=== PATIENT | male | born 2000 | race Caucasian/White ===

== ENCOUNTER 2019-11-26 09:30 | Day surgery (SDC) | payer OTHER ==
[~2019-11-26] VITALS: Ht 185.4 cm; Wt 99.8 kg
--- NOTE | ~2019-11-26 | OR ---
[facility] [address] [place], [place] [address] Draft DATE OF OPERATION: 11/26/2019 SURGEON: Jolynn Cummings MD PREOPERATIVE DIAGNOSIS: Pilonidal cyst (chronic). POSTOPERATIVE DIAGNOSIS: Pilonidal cyst (chronic). PROCEDURE: Excision of pilonidal cyst. ANESTHESIA: Saddle block with local anesthesia (Rosy Holguin CRNA). INDICATION: This 19-year-old white young man lives in [place] and is spending part of the summer with his grandparents locally. He was identified as having a chronic pilonidal cyst. He presented with pain and purulence in [place] where he lives. Plans were made for excision in [place]; however, his COVID test timing was off, and on that basis, his operation was canceled. He has elected to spend the rest of the summer with his grandparents locally and is self-referred for definitive excision of the pilonidal problem. He understands the risks of bleeding, infection, and recurrence. Although, there are many approaches to pilonidal management. I have recommended excision and probable wound packing rather than elaborate rotational flap or even primary closure given his local findings. He understands all of this and wished to proceed. FINDINGS: A dense rock-hard mass was noted to the left of the midline. A pilonidal disease was rather limited actually. Excision was undertaken to the post coccygeal fascia including the nodule that was eccentrically placed. The lesion once excised was opened and found to have a nest of hairs as would be expected. There was no sign of actual purulence. Wound packing was undertaken and liberal local anesthetic injected. DESCRIPTION OF PROCEDURE: The patient was brought to the operating room after undergoing saddle block anesthetic in the preop area. He was placed in the prone jackknife position. Buttocks were taped apart. He has a fair amount of internatal cleft hair and this area was clipped and prepared with a Betadine based solution and draped sterilely. A dominant pore was noted PATIENT NAME: MARY BASILIO OPERATIVE REPORT DATE OF : [birth year] REPORT #: [id number] PHYSICIAN: JOLYNN CUMMINGS MD PCP: NO PRIMARY CARE PHYSICIAN REPORT IS CONFIDENTIAL AND NOT TO BE RELEASED WITHOUT AUTHORIZATION [facility] [address] [place], [place] [address] Draft with hairs emanating from it. Palpation revealed approximately a 2 cm nodule to the left of the midline. There was only about 2 cm from the anal verge itself. There was no pilonidal disease cephalad to this. An ellipse was made on the right side of the internatal cleft in the lower aspect and extended and then to the left side, making an eccentric incision to incorporate the dense nodule laterally. Dissection was carried further with electrocautery. Complete excision of the diseased tissue was undertaken. A limited amount of tissue was excised. The lesion was incised on the back table and found to have a nest of hairs. There was no sign of purulence. All of the nest was "dry." Re-examination of the excision site showed good fresh tissue. Electrocautery was used to secure hemostasis. 20 mL of 0.25% Marcaine with epinephrine was injected locally for postoperative analgesia. The wound was packed with single-ply coarse gauze and a beltran pad, and he was returned to supine position, ultimately taken to the recovery room in good condition. MD KYLE Urrutia/DONNA /[id number] Copies: ~ PATIENT NAME: MARY BASILIO OPERATIVE REPORT DATE OF : [birth year] REPORT #: [id number] PHYSICIAN: JOLYNN CUMMINGS MD PCP: NO PRIMARY CARE PHYSICIAN REPORT IS CONFIDENTIAL AND NOT TO BE RELEASED WITHOUT AUTHORIZATION
--- NOTE | 2019-11-26 11:00 | NUR ---
11/26/19 1100 Triny Finney 1056-PATIENT ARRIVED TO PACU ON RA RR EVEN NONAROUSABLE. SR. IVF INFUSING.
[2019-11-26] MEDS ORDERED: IBUPROFEN600 MG PO (11:16)
[2019-11-26] MEDS ORDERED: ACETAMINOPHEN500 MG PO (11:16)
[2019-11-26] MEDS ORDERED: OXYCODON-ACETA1 EAC2 PO (11:16)
--- NOTE | 2019-11-27 12:19 | PATH ---
[facility] [address] [place], [place] [address] Signed SPECIMEN(S): A PILONIDAL CYST SPECIMEN SOURCE: A. PILONIDAL CYST CLINICAL HISTORY: Excision of pilonidal cyst. FINAL PATHOLOGIC DIAGNOSIS: "Pilonidal cyst", excision: - Consistent with pilonidal sinus/cyst with evidence of prior rupture. NAL:cml:C2NR MICROSCOPIC EXAMINATION: Histologic sections of all submitted blocks are examined by light microscopy. These findings, together with the gross examination, support the pathologic diagnosis. GROSS DESCRIPTION: The specimen, labeled "HT, pilonidal cyst," is received in formalin and consists of one triangular-shaped piece of skin tissue that measures 2.5 x 1.9 cm with attached up to 2.5 cm, yellow-parikh subcutaneous tissue. Skin surface shows a defect that measures 0.3 cm through defect with protruding brown hair. Sectioning through the specimen reveals pink-parikh, homogenous tissue and yellow-parikh, cyst-like defect that measures 0.3 cm in diameter. Graphics Manager sections are submitted in cassettes (A1-A2). JS (under the direct supervision of a pathologist) The Gross Description was prepared using a voice recognition system. The report was reviewed for accuracy; however, sound-alike word errors, addition and/or deletions may occur. If there is any question about this report, please contact Client Services. PERFORMING LABORATORY: The technical component was performed by [facility], [address] [place] [id number] (Invertebrate Paleontologist: Sarita Patel MD; CLIA# [id number]). [facility] [address] [address] (CLIA# [id number]). Diagnostician: Aisha Mcbride MD PATIENT NAME: MARY BASILIO PATHOLOGY DATE OF : [birth year] REPORT #: [id number] PHYSICIAN: [facility] PCP: NO PRIMARY CARE PHYSICIAN REPORT IS CONFIDENTIAL AND NOT TO BE RELEASED WITHOUT AUTHORIZATION [address] [address] Signed Pathologist Electronically Signed 11/27/2019 Copies: ~ PATIENT NAME: MARY BASILIO PATHOLOGY DATE OF : [birth year] REPORT #: [id number] PHYSICIAN: [facility] PCP: NO PRIMARY CARE PHYSICIAN REPORT IS CONFIDENTIAL AND NOT TO BE RELEASED WITHOUT AUTHORIZATION
== END 2019-11-26 11:55 | disposition home or self-care (01) ==
LOC: DS 09:30 → OPS 09:30 → EDBD 11:00 → DS 11:00 → OPS 11:00
PROVIDERS: Surgery
PROC: 0HB8XZZ Excision of Buttock Skin, External Approach (ICD-10-PCS; principal; 2019-11-26 11:00)
DX: L05.91 Pilonidal cyst without abscess (principal)
CPT/HCPCS: 00400; J0690; J1885; J2001; J2250; J2704; J7121